=== PATIENT | male | born 1960 | race Caucasian/White ===

== ENCOUNTER → 2018-03-17 | Emergency (ER) | END | disposition home or self-care (01) ==

== ENCOUNTER 2018-07-17 00:51 | Inpatient (IN) | END 2018-07-17 12:54 | disposition home or self-care (01) | DRG 948 ==

== ENCOUNTER 2019-01-20 12:36 | Emergency (ER) | payer OTHER ==
[~2019-01-20] VITALS: Ht 177.8 cm; Wt 82.7 kg
[~2019-01-20 12:36] MED LIST: CYCL10TA7 PO; HYDR2TAB36 PO; IBUP800T48 PO; OXYC-536 PO
[2019-01-20 12:39] VITALS: Ht 177.8 cm; Wt 82.7 kg
[2019-01-20] MEDS ORDERED: IBUPROFEN 800 MG TAB PO STA (13:06)
[2019-01-20] MEDS ORDERED: LIDOCAINE 2% (MDV) 20 ML INJ INJ STA (13:06)
[2019-01-20] MEDS ORDERED: SODIUM CHLORIDE 0.9% 1L IRRIG IRR STA (13:06)
[2019-01-20] MEDS ORDERED: DIPHTH/TET/ACEL PERTUSS (ADULT) 0.5 ML VIAL IM* ONE (13:30)
[2019-01-20] MEDS ORDERED: CEFAZOLIN 1 GM INJ IM ONE (15:00)
[2019-01-20] MEDS ORDERED: HYDR-4011 PO (15:08)
[2019-01-20] MEDS ORDERED: CEPH-443 PO (15:08)
[2019-01-20] MEDS ORDERED: NAPR-985 PO (15:08)
[2019-01-20] MEDS ORDERED: SULF1TAB31 PO (15:08)
[2019-01-20 16:03] VITALS: BP 145/80; PULSE 89; RESP 18
--- NOTE | 2019-01-20 18:44 | ERD ---
ER Documentation Chief Complaint Chief Complaint LEFT INDEX FINGER LAC FROM A TABLE SAW. BLEEDING CONTROLLED. 30 MIN AGO HPI Patient is a 58-year-old male with no significant past medical history presenting to the emergency department complaints of laceration to his left index finger which occurred from a table saw just prior to arrival. Patient states he was at work using a table saw when he accidentally cut his left index finger. His tetanus is not up-to-date. He reports associated pain which is moderate to severe and worse with movement. He denies any other symptoms or injuries at this time. ROS All systems reviewed and are negative except as per history of present illness. Medications Home Meds Active Scripts Hydrocodone/Acetaminophen ([place] 5-325 Tablet) 1 Each Tablet, 1 TAB PO Q6H PRN for PAIN, #7 TAB Prov:JAYESH GROSS PA-C 01/20/19 Naproxen* (Naprosyn*) 500 Mg Tablet, 500 MG PO BID PRN for PAIN AND/OR INFLAMMATION, #30 TAB Prov:JAYESH GROSS PA-C 01/20/19 Sulfamethoxazole/Trimethoprim* (Bactrim Ds* Tablet) 1 Each Tablet, 1 TAB PO BID, #14 TAB Prov:JAYESH GROSS PA-C 01/20/19 Cephalexin* (Keflex*) 500 Mg Capsule, 500 MG PO TID for 7 Days, CAP Prov:JAYESH GROSS PA-C 01/20/19 Hydromorphone Hcl* (Dilaudid*) 2 Mg Tablet, 2 MG PO Q6H PRN for SEVERE PAIN LEVEL 7-10, #30 TAB Prov:SVETLANA LEWIS 07/16/18 Oxycodone Hcl* (Oxycontin*) 15 Mg Tab.sr.12h, 30 MG PO BID, #30 TAB Prov:SVETLANA LEWIS 07/16/18 Cyclobenzaprine Hcl* (Cyclobenzaprine Hcl*) 10 Mg Tablet, 10 MG PO Q8, #30 TAB Prov:SVETLANA LEWIS 07/16/18 Ibuprofen* (Motrin*) 800 Mg Tab, 800 MG PO Q8 PRN for PAIN, #30 TAB Prov:SVETLANA LEWIS 07/16/18 Allergies Allergies: Coded Allergies: No Known Allergy (Unverified , 07/14/18) PMhx/Soc History of Surgery: Yes (Neck C7 Sx in 2017; back L1-14 07/2018) Anesthesia Reaction: No Hx Neurological Disorder: No Hx Respiratory Disorders: No Hx Cardiac Disorders: No Hx Psychiatric Problems: Yes (ADHD) Hx Miscellaneous Medical Probl: Yes (INTRACTABLE LBP.) Hx Alcohol Use: No Hx Substance Use: No Hx Tobacco Use: No Smoking Status: Never smoker FmHx Family History: No diabetes Physical Exam Vitals Vital Signs Date Temp Pulse Resp B/P (MAP) Pulse Ox O2 O2 Flow FiO2 Time Delivery Rate 01/20/19 98.6 89 18 145/80 99 Room Air 16:03 (101) 01/20/19 98.0 86 18 156/99 98 12:39 (118) Physical Exam Const: No acute distress Head: Atraumatic Eyes: Normal Conjunctiva ENT: Normal External Ears, Nose and Mouth. Neck: Full range of motion. No meningismus. Resp: No respiratory distress. Skin: No petechiae or rashes Ext: There is an approximate 3 cm laceration noted to the distal portion of the left index finger. The nail is broken. There is no obvious foreign body. The patient is neurovascularly intact to the left index finger. There is mild active bleeding. Neur: Awake and alert Psych: Normal Mood and Affect Results 24 hrs Current Medications Medications Dose Sig/Willie Start Time Status Last (Trade) Ordered Route PRN Stop Time Admin Dose Reason Admin Diphtheria/ 0.5 ml ONCE ONCE 01/20/19 DC 01/20/19 Tetanus/Acell IM* 13:30 13:22 Pertussis 01/20/19 13:31 (Adacel) Sodium 1,000 ml ONCE STAT 01/20/19 DC Chloride IRR 13:06 (NS (Irrig)) 01/20/19 13:08 Lidocaine 20 ml ONCE STAT 01/20/19 DC (Xylocaine INJ 13:06 2% (Mdv) 20 01/20/19 13:08 ml) Ibuprofen 800 mg ONCE STAT 01/20/19 DC 01/20/19 (Motrin) PO 13:06 13:21 01/20/19 13:08 Cefazolin 1 gm ONCE ONCE 01/20/19 DC 01/20/19 Sodium IM 15:00 15:12 (Ancef) 01/20/19 15:01 [place] [id number] [place] [id number] Radiology Main Line: [phone] DIAGNOSTIC IMAGING REPORT Patient: CAROLINA BLACKWELL : 1960 Age: 58 Sex: M MR #: [id number] DOS: 01/20/19 0000 Ordering MD: JAYESH GROSS PA-C Location: [facility] Room/Bed: PROCEDURE: XR Finger. CLINICAL INDICATION: Left index finger pain with a laceration TECHNIQUE: Three views of the left second digit. COMPARISON: None. FINDINGS: A comminuted and displaced fracture of the tuft of the distal second phalanx is seen. Soft tissue defect at the fracture site is seen. No other fracture is seen. No dislocation is seen. The remaining soft tissues are unremarkable. No radiopaque foreign body is identified. IMPRESSION: Comminuted and displaced fracture of the tuft of the distal second phalanx with the suggestion of a laceration. RPTAT: HPNM Physician Matthias Date Time Electronically viewed and signed by Physician Matthias on 01/20/2019 14:12 / CC: JAYESH GROSS PA-C [id number] Procedures/MDM 58-year-old male presenting to the emergency department for injury to the left index finger. There was a laceration noted to the distal end of the left index finger with associated tuft fracture. The full report of the x-ray interpreted by the radiologist may be viewed above. Due to this being an open fracture, patient was administered Ancef. He was administered ibuprofen for pain. His tetanus was updated. The full risks, benefits, alternatives of laceration repair with sutures was discussed and the patient gave verbal agreement. Patient tolerated the procedure well. See procedure note below. Patient was advised he must follow-up with hand surgeon within the next 24 to 48 hours. He demonstrated good understanding and he was given resources to follow-up. He was placed in a metal finger splint and wound was dressed appropriately.Splint Assessment: Neurovascularly intact post splint placement with good fit. Laceration Repair by me: Anesthesia: 1% lidocaine digital block Location: Left index finger Tendon/Joint/Nerves: No injury Foreign body: None detected after copious irrigation and exploration Technique: Simple Interrupted Sutures Complexity: No subcutaneous sutures/mucosal repair/edge excision Post Closure Length: 3 cm Patient's bleeding was easily controlled in the department and there is no indication of anemia. No evidence of compartment syndrome, neurologic injury, vascular injury, open joint, tendon laceration, or foreign body. Patient is appropriate for outpatient follow up. 48 hour wound check. Scar minimization instructions given. Patient's extremity symptoms have stabilized while they have been evaluated in the department and are appropriate for outpatient follow up. No evidence of compartment syndrome, neurologic injury, vascular injury, open joint, open fracture, tendon laceration, or foreign body. I did discuss this case with attending ED physician, Dr. Letty Neves, he was in agreement with the assessment, plan, and overall ED course. Patient's blood pressure was elevated (>120/80) but appears stable without evidence of hypertension emergency or urgency. The patient is to follow-up and pursue outpatient monitoring and therapy with their primary care physician within 1 week and return immediately if they have any new, worsening, or concerning symptoms. Departure Diagnosis: Primary Impression: Finger laceration Additional Impression: Distal phalanx or phalanges, closed fracture Condition: Fair Patient Instructions: Fracture, Finger (Open) Referrals: [facility] Additional Instructions: SPECIALIST: YOU HAVE A MEDICAL CONDITION WHICH REQUIRES YOU TO SEE A SPECIALIST WITHIN THE NEXT 1-2 DAYS. PLEASE FOLLOW UP WITH YOUR PRIMARY PHYSICIAN FOR REFFERAL.IF YOU DO NOT HAVE A PRIMARY CARE PHYSICIAN AND/OR YOU CAN NOT AFFORD TO SEE A PHYSICIAN THE FOLLOWING RESOURCES HAVE BEEN SUPPLIED TO YOU. IT IS YOUR RESPONSIBILITY TO BE SEEN BY THE SPECIALIST: HAND SURGEON JAYESH GROSS PA-C January 20, 2019 18:44
== END 2019-01-20 16:04 | disposition home or self-care (01) ==
LOC: FTE 12:36
DX: S62.631A Displaced fracture of distal phalanx of left index finger, initial encounter for closed fracture (principal); W31.2XXA Contact with powered woodworking and forming machines, initial encounter; Y92.9 Unspecified place or not applicable; Z23 Encounter for immunization
CPT/HCPCS: 12002; 73140; 90471; 90715; 96372; A4217; J0690; Z7502; Z7610